=== PATIENT | female | born 1960 ===

== ENCOUNTER 2019-09-29 09:45 | Inpatient (IN) | payer OTHER ==
[~2019-09-29] VITALS: Ht 162.6 cm; Wt 72.1 kg
[2019-09-29] MEDS ORDERED: RESTORIL30 M1 PO (14:04)
[2019-09-29] MEDS ORDERED: ZOLOFT100 MG PO (14:05)
[2019-09-29] MEDS ORDERED: CLONAZEPAM1 M1 PO (14:05)
[2019-09-29] MEDS ORDERED: BUPROPION XL300 MG PO (14:06)
[2019-09-29] MEDS ORDERED: SIMVASTATIN20 MG PO (14:06)
[2019-09-29] MEDS ORDERED: B-12500 MCG PO (14:07)
[2019-09-29] MEDS ORDERED: VITAMIN D250 MC1 PO (14:07)
[2019-10-02] MEDS ORDERED: VITAMIN D3125 MC1 PO (13:24)
[2019-10-02] MEDS ORDERED: LEVO-T125 MCG PO (16:32)
[2019-10-02] MEDS ORDERED: CYANOCOBAL1000 MCG/1 IJ (16:33)
== END 2019-10-04 11:26 | disposition home or self-care (01) | DRG 743 ==
LOC: OB/GYN 10-02 08:37 → O/R 10-02 08:37 → SURH 10-02 09:45 → OB/GYN 10-02 16:34 → SURH 10-02 22:30 → OB/GYN 10-04 11:26
PROVIDERS: ADMIT Obstetrics & Gynecology Gynecologic Oncology; ATTEND Obstetrics & Gynecology Gynecologic Oncology
PROC: 0UB70ZZ Excision of Bilateral Fallopian Tubes, Open Approach (ICD-10-PCS; 2019-10-02)
PROC: 0UB20ZZ Excision of Bilateral Ovaries, Open Approach (ICD-10-PCS; 2019-10-02)
PROC: 0TN64ZZ Release Right Ureter, Percutaneous Endoscopic Approach (ICD-10-PCS; 2019-10-02)
PROC: 0UT90ZZ Resection of Uterus, Open Approach (ICD-10-PCS; principal; 2019-10-02 22:30)
DX: D25.1 Intramural leiomyoma of uterus (principal); I10 Essential (primary) hypertension; N83.202 Unspecified ovarian cyst, left side; N80.1 Endometriosis of ovary; N73.6 Female pelvic peritoneal adhesions (postinfective)